=== PATIENT | female | born 1960 | race Caucasian/White ===

== ENCOUNTER 2017-12-05 06:44 | Day surgery (SDC) | payer OTHER ==
[2017-12-05] MEDS ORDERED: PROPOFOL 20 ML (08:32)
[2017-12-05] MEDS ORDERED: MIDAZOLAM 1 MG/ML 2 ML INJ (08:33)
[2017-12-05] MEDS ORDERED: FENTAnyl 50 MCG/ML VIAL (08:33)
== END 2017-12-05 13:55 | disposition home or self-care (01) ==
LOC: GIL 06:44
DX: K92.1 Melena (principal); K21.9 Gastro-esophageal reflux disease without esophagitis; K29.70 Gastritis, unspecified, without bleeding; K57.90 Diverticulosis of intestine, part unspecified, without perforation or abscess without bleeding; K64.8 Other hemorrhoids; I10 Essential (primary) hypertension; R73.03 Prediabetes
CPT/HCPCS: 43239; 88305; 88312